=== PATIENT | female | born 1995 | race Caucasian/White ===

== ENCOUNTER → 2025-09-02 13:27 | Outpatient (REF) | payer OTHER, SELFPAY | LOC: PNTC 13:27 | PROVIDERS: ATTENDING PHYSICIAN Obstetrics & Gynecology | DX: Z36.86 Encounter for antenatal screening for cervical length (principal); Z36.3 Encounter for antenatal screening for malformations; Z36.89 Encounter for other specified antenatal screening | CPT/HCPCS: 76811; 76817 ==